=== PATIENT | female | born 1960 | race Caucasian/White ===

== ENCOUNTER 2023-08-19 08:46 | Day surgery (SDC) | payer OTHER, BC ==
[2023-08-16 11:24] VITALS: BMI 32.0
[2023-08-19 09:08] VITALS: RESP 16
[2023-08-19 10:49] VITALS: TEMP 97.1
[2023-08-19 11:06] VITALS: BP 131/54; PULSE 61
== END 2023-08-19 11:22 | disposition home or self-care (01) ==
LOC: FASU-ENDO 08:46
PROVIDERS: ATTEND Internal Medicine Gastroenterology
PROC: 0DJD8ZZ Inspection of Lower Intestinal Tract, Via Natural or Artificial Opening Endoscopic (ICD-10-PCS; principal; 2023-08-19 09:43)
DX: Z12.11 Encounter for screening for malignant neoplasm of colon (principal); K57.30 Diverticulosis of large intestine without perforation or abscess without bleeding; Z86.010 Personal history of colon polyps; Z80.0 Family history of malignant neoplasm of digestive organs; Z83.71 Family history of colonic polyps
CPT/HCPCS: 88305-TC; 88342-TC